=== PATIENT | male | born 2000 | race Two or more races ===

== ENCOUNTER 2022-06-01 00:50 | Emergency (ER) | payer MEDICAID, SELFPAY ==
--- NOTE | ~2022-06-01 | XR_ITS ---
EXAMINATION: XR KNEE, RIGHT CLINICAL INFORMATION: Pain. Superficial abrasion. COMPARISON: None TECHNIQUE: Four views of the right knee. FINDINGS: There is no fracture or subluxation. Compartmental joint spaces are maintained. No joint effusion. The soft tissues are unremarkable XR/XR knee RT 4V IMPRESSION: Normal right knee.
[2022-06-01 01:36] VITALS: BP 108/56; PULSE 66; RESP 18; TEMP 36.2; O2SAT 97; BMI 24.1
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
[2022-06-01] MEDS: Ketorolac Tromethamine 15 MG/ML VIAL IM (02:36)
[2022-06-01] MEDS: Acetaminophen 325 MG TABLET 975 MG PO (02:37)
[2022-06-01] MEDS: Diphth,Pertus(ACell),Tet Adult 0.5 ML SYRINGE IM (03:35)
== END 2022-06-01 03:42 | disposition home or self-care (01) ==
PROVIDERS: Emergency Provider Student in an Organized Health Care Education/Training Program
DX: S80.211A Abrasion, right knee, initial encounter (principal); V03.99XA Pedestrian with other conveyance injured in collision with car, pick-up truck or van, unspecified whether traffic or nontraffic accident, initial encounter; Y93.55 Activity, bike riding; Y92.410 Unspecified street and highway as the place of occurrence of the external cause; Y99.9 Unspecified external cause status; F17.200 Nicotine dependence, unspecified, uncomplicated; Z71.6 Tobacco abuse counseling
CPT/HCPCS: 73564; 90471; 90715; 96372; 99284; J1885